=== PATIENT | male | born 1990 | race Caucasian/White ===

== ENCOUNTER → 2018-09-01 11:25 | Outpatient (CLI) | payer OTHER, SELFPAY ==
--- NOTE | 2018-09-01 11:35 | XR_ITS ---
XR finger LT min 2V CLINICAL INDICATION: Pain following injury ITS.REASON: LEFT THUMB INJURY ORDERING PHYSICIAN: Jaron Reagan MD PATIENT AGE: 28 years Comparison: 08/07/2015 FINDINGS: No fracture or dislocation. No radiopaque foreign body IMPRESSION: Negative left thumb
== END ==
PROVIDERS: PCP Family Medicine; Visit Provider Family Medicine
DX: S69.92XA Unspecified injury of left wrist, hand and finger(s), initial encounter (principal)
CPT/HCPCS: 73140

== ENCOUNTER → 2019-12-19 07:19 | Outpatient (CLI) | payer OTHER, SELFPAY ==
[2020-01-09 16:10] LABS: Covid-19 Nasal PCR Sendout Lex NOT DETECTED
== END ==
PROVIDERS: Visit Provider Urology
DX: Z03.818 Encounter for observation for suspected exposure to other biological agents ruled out (principal)
CPT/HCPCS: U0004

== ENCOUNTER 2019-12-21 11:48 | Day surgery (SDC) | payer OTHER, SELFPAY ==
--- NOTE | 2019-12-18 09:39 | SUR.PREOP ---
12/18/2019 @ 0939--PHONE CALL MADE TO PATIENT. PATIENT UNDERSTANDS THAT LAB WORK AND COVID TESTING NEEDS TO BE COMPLETED @ 0730 ON 12/19/2019. PATIENT UNDERSTANDS IF LAB WORK AND COVID-19 TESTS ARE NOT COMPLETED BY 12PM ON THAT DATE, THE SURGERY SCHEDULED WILL BE CANCELLED AND RESCHEDULED FOR ANOTHER TIME.
[2019-12-20 10:28] VITALS: BMI 20.9
[2019-12-21] VITALS (7 sets, daily range): BP systolic 102–118; BP diastolic 60–74; PULSE 74–89; RESP 16–18; TEMP 36.7; O2SAT 94–98
--- NOTE | 2019-12-21 12:51 | HMH.ANESCL ---
[facility] Anesthesia Checklist - Patient Identification Patient Identification: Arm Band - Structural Data Admitted From: Home Planned Operative Procedure/s: vasectomy Consent for Planned Operative Procedure(s) Verified: Yes Verified Documents: Surgical Consent, History and Physical - NPO Status Verified Time NPO: 00:00 - Additional verifications Anesthesia Reactions: No Hx Blood Transfusions: No Blood Transfusion Reaction: No - Airway Assessment C-Spine Mobility Assessed: Yes (mp2) TMJ Mobility Assessed: Yes Dentition: Good Dentition - Neurological Assessment Level of Consciousness: Awake, Alert - Anesthesia Plan Anesthesia Risk discussed: Yes Anesthesia Plan: Verified ASA Class: I Anesthesia Type: MAC [facility] History I have reviewed the patient's past medical history: Yes Medical History: Reports:: Anxiety Denies:: Cancer, Diabetes Mellitus Type 1, Diabetes Mellitus Type 2, Internal Pacemaker, MRSA, Seizures *Have you ever received a pneumonia vaccine?: No *Have you received a flu vaccine this season?: No Other Medical History: Denies: Blood Transfusion Reaction Anesthesia experience/problems:: nac Other Surgeries: Yes: No Previous Surgery. No: Pacemaker Amputation: No Fractures: No - *Social History Smoking Status: Never smoker Tobacco Type: smokeless tobacco Alcohol Intake: never Alcohol Intake Frequency:: holidays/special occasions only Substance Use Type: denies use *Occupational Status:: employed Housing: house Household Members: spouse *Travel in the last 8 weeks: None Family Hx:: Cancer, Hyperlipidemia, Diabetes, Coronary Artery Disease
--- NOTE | 2019-12-21 15:52 | P.OP_ITS ---
Date of procedure: 12/21/19 Pre-op Diagnosis:: Desire sterilization Post-op Diagnosis:: Same Procedure performed:: Bilateral vasectomy Surgeon:: Jamal Smith MD NATURAL RESOURCES INSTRUCTOR:: Raimundo Gonzalez Anesthesia: MAC Estimated blood loss (mL): 2 Clinical Note:: 29-year-old white male seen in the office for vasectomy consultation presents for the procedure today. Operative findings:: Scrotal exam reveals normal-sized testicles without mass. Vasectomy proceeded under local MAC without complication. Operative note:: Patient taken to the operating room after informed consent was obtained. Placed on the operating table in the supine position and monitored anesthesia care administered. Preoperative IV antibiotics were administered. Patient prepped and draped in the standard surgical fashion. Testicular exam revealed normal- sized testicles without masses or other abnormality. The left vas was grasped and brought up to the midline raphae. Local anesthetic was placed in and around the midline raphae and the left vas. The incision was then made in the skin and the left vas was grasped with a tenaculum and the basal sheath then incised and the vasa proper was dissected from its surrounding adventitia. One clip was placed distally and 2 proximally and a 1 cm segment then excised. The ends of the proximal and distal vessels were cauterized with the pen cautery. Hemostasis achieved in the left vas placed back into the left hemiscrotum. The identical procedure was performed on patient's right side bringing the right vas up to the same midline incision and local anesthetic placed around the right vas. Tenaculum was used to bring the vas up through the incision and the basal sheath incised and the vas proper was doubly clipped a segment excised and the ends cauterized. Hemostasis achieved in the right vas dropped back into the right hemiscrotum. A 3-0 chromic was placed in a horizontal mattress fashion. Wet and dry used to clean the scrotal skin and Neosporin and compression dressing applied. Patient tolerated procedure well. There is minimal blood loss and no complications. Condition: stable Disposition: same day Specimens:: None Complications:: None
== END 2019-12-21 16:25 | disposition home or self-care (01) ==
LOC: OR 11:52
PROVIDERS: PCP Physician Assistant; Visit Provider Urology
PROC: (CPT 55250; principal; 2019-12-21 13:30)
DX: Z30.2 Encounter for sterilization (principal)
CPT/HCPCS: 55250; 96374

== ENCOUNTER → 2020-06-11 10:07 | Outpatient (CLI) | payer OTHER, SELFPAY ==
--- NOTE | 2020-06-11 10:18 | XR_ITS ---
PROCEDURE: XR ELBOW RT MIN 3V CLINICAL INDICATION: RT ELBOW PAIN,SWELLING COMPARISON: No exams were available for comparison FINDINGS: No fracture or dislocation. No lytic or blastic change. There is normal mineralization. The joint spaces are well-preserved. No significant degenerative/arthritic changes. No erosive changes evident. Other findings:None. IMPRESSION: No acute findings. Dictated by: Dr. Davide Arias MD 06/11/2020 10:43 Dr. Davide Arias MD in [place] 06/11/2020 10:43
== END ==
PROVIDERS: PCP Physician Assistant; Visit Provider Nurse Practitioner Family
DX: M25.521 Pain in right elbow (principal); M25.421 Effusion, right elbow
CPT/HCPCS: 73080

== ENCOUNTER → 2020-06-14 07:52 | Outpatient (CLI) | payer OTHER, SELFPAY ==
--- NOTE | 2020-06-14 07:54 | MR_ITS ---
PROCEDURE: MR ELBOW RT WO CON CLINICAL INDICATION: RIGHT ELBOW PAIN, SWELLING OF RIGHT ELBOW BURNING IN ELBOW. FELT A POP IN [id number] AGO. LATERAL SIDED ELBOW PAIN. SWELLING IN ELBOW. PRIOR X-RAY 06-11-20 COMPARISON: DX XR ELBOW RT MIN 3V from 06/11/2020 TECHNIQUE: Routine multiplanar multi echo sequences are performed without gadolinium enhancement. FINDINGS: No fracture or bone marrow edema apparent. No ligamentous or tendon abnormalities evident.. The ulnar collateral, radial collateral, and annular ligaments have an unremarkable appearance. There is a small amount of fluid in the elbow joint. The bicipital tendon has an unremarkable appearance as does the triceps area. A small amount of fluid is present just deep to the extensor tendon and may be seen with lateral epicondylitis. The flexor tendon has an unremarkable appearance. IMPRESSION: 1. Small elbow joint effusion. 2. Small amount fluid deep to the extensor tendon which may be seen with lateral epicondylitis. Please correlate clinically. Dictated by: Prosper Ma MD 06/17/2020 12:14 Prosper Ma MD in [place] 06/17/2020 12:14
== END ==
PROVIDERS: PCP Physician Assistant; Visit Provider Nurse Practitioner Family
DX: M25.521 Pain in right elbow (principal); M25.421 Effusion, right elbow
CPT/HCPCS: 73221

== ENCOUNTER 2020-08-13 15:30 | Outpatient (RCR) | payer OTHER, SELFPAY ==
--- NOTE | 2020-07-01 11:03 | HMH.PTOPEV ---
PT Outpatient Evaluation Rehab PT Outpatient Evaluation Start: 07/01/20 10:11 Freq: Status: Active Protocol: Document 07/01/20 10:11 BILL (Rec: 07/01/20 11:03 BILL [id number]) Electronically Signed By Nicolas Alejo, PT 07/01/20 10:11 Outpatient Therapy Subjective History Subjective History Pt reports R elbow work- related injury on 06/17/20. Pt reports lifting injury occured on 06/17/20 while attempting to control asphalt saw, felt ' pop' in lateral aspect of R elbow-pain since. Pt reports referred pain into R lateral upper arm and forearm as well as localized pain at lateral epicondyle. Chief Complaint Pain,Stiff,Weakness Symptom Type Ache,Sharp,Dull Symptoms Relieved By Rest/Positioning,Ice Symptoms Aggravated By Physical Activity,Lifting Prior Functional Limitations None Current Functional Limitations Lifting,Housework,Driving Symptom Description Constant but Variable Level of pain today (0-10) 0 Pain scale - at its best (0-10) 0 Pain scale - at its worst (0-10) 8 Shoulder/Elbow Eval Shoulder Objective Measurements Elbow Objective Measurements Palpation Tenderness Elbow Palpation Overall Comment 3/4 Elbow Palpation Finding Tenderness,Trigger Point tenderness over the lateral epicondyle left elbow exam standard Elbow ROM Right Elbow Extension Active Range of Motion ( 0 degrees) Elbow Flexion Active Range of Motion ( 0-140 degrees) Elbow Pronation of Forearm Range of 0-90 Motion (degrees) Elbow Supination of Forearm Range of 0-90 Motion (degrees) Elbow ROM Limitations Soft Tissue Tightness,Pain Elbow MMT Elbow Flexion Strength Grade 4- Good- Biceps Brachii Strength Grade 4- Good- Brachioradialis Strength Grade 4- Good- Brachialis Strength Grade 4 Good Brachialis Strength Grade (Flexion) 4 Good Elbow Extension Strength Grade 4- Good- Triceps Brachii Strength Grade 4- Good- Elbow Special Tests Passive Tennis Elbow Test Positive Right Wrist/Hand Eval Wrist Manual Muscle Testing Right Wrist Extension Strength Grade 4 Good Wrist Flexion Strength Grade 4- Good- Forearm Supination Strength Grade 4- Good- Forearm Pronation Strength Grade 4- Good- Supinator Strength Grade 4 Good Outpatient Therapy Assessment Impairments Problems/Impairmments Palpation Tenderness,Impaired Range of Motion,Impaired
== END 2020-08-13 15:35 | disposition home or self-care (01) ==
LOC: PT 15:30
PROVIDERS: Referring Provider Nurse Practitioner Family; Visit Provider Nurse Practitioner Family
DX: M25.521 Pain in right elbow; M77.11 Lateral epicondylitis, right elbow; M25.421 Effusion, right elbow
CPT/HCPCS: 97010; 97014; 97033; 97035; 97110; 97163; G0283

== ENCOUNTER 2020-10-04 23:46 | Emergency (ER) | payer OTHER, SELFPAY ==
[2020-10-04 23:52] VITALS: BP 137/97; PULSE 80; RESP 18; TEMP 36.7; O2SAT 98; BMI 20.6
--- NOTE | 2020-10-04 23:57 | XR_ITS ---
PROCEDURE: XR HAND RT MIN 3V CLINICAL INDICATION: punched a wall Pain COMPARISON: No exams were available for comparison FINDINGS: There is a fracture present involving the distal shaft of the 5th metacarpal. There is moderate radial and palmar angulation of the distal fracture fragment with 4 mm displacement anteriorly of the distal fracture fragment. IMPRESSION: Mildly displaced 5th metacarpal fracture Dictated by: Prosper Ma MD 10/05/2020 08:08 Prosper Ma MD in [place] 10/05/2020 08:08
--- NOTE | 2020-10-05 00:03 | XR_ITS ---
PROCEDURE: XR WRIST RT 2V CLINICAL INDICATION: hand pain Pain following injury COMPARISON: No exams were available for comparison FINDINGS: No fracture or dislocation. No lytic or blastic change. There is normal mineralization. The joint spaces are well-preserved. No significant degenerative/arthritic changes. No erosive changes evident. Other findings:None. IMPRESSION: Negative wrist Dictated by: Prosper Ma MD 10/05/2020 08:08 Prosper Ma MD in [place] 10/05/2020 08:08
--- NOTE | 2020-10-05 00:03 | HMH.EDUPEXT ---
ED Disposition Clinical Impression: Fracture of fifth metatarsal bone Qualifiers: Encounter type: initial encounter Fracture type: closed Fracture alignment: displaced Laterality: right Qualified Code(s): S92.351A - Displaced fracture of fifth metatarsal bone, right foot, initial encounter for closed fracture Disposition: Home, Self-Care Condition on Discharge: Good Instructions: DI for Boxer's Fracture Additional Instructions: Use Tylenol and ibuprofen for pain and follow-up with orthopedics for further evaluation of the fracture within 1 week. If you have not heard from orthopedics with an appointment by Wednesday please call their office. Prescriptions: Hydrocod/Acet 5/325 mg [Warren 5/325mg tablet] 1 tab PO Q6HP PRN #6 tab PRN Reason: Severe Pain Transmission Status: Pending to [id number] Referrals: Ayanna Holly PA [Primary Care Provider] - Shankar Schuler MD [Staff Physician] - Forms: Work/School Release Time of Disposition: 00:49 - Critical Care Critical Care Time: No Attestation: On , the high probability of a clinically significant, sudden or life threatening deterioration of the following system(s) required my full and direct attention, intervention and personal management. The time I documented below is in addition to time spent performing reported procedures but includes the following listed in this critical care notation. Medical Decision Making - Baltazar Inquiry Pt receiving controlled substance: Yes Baltazar was queried for this patient: Yes Reference #:: [id number] Risks and benefits of using a controlled substance: were discussed with pt by me Vital Signs: 10/04/20 23:52 Temperature 98.0 F Temperature Source Oral Pulse Rate [Right Brachial] 80 Respiratory Rate 18 Blood Pressure [Right Arm] 137/97 H Blood Pressure Mean [Right Arm] 110 Blood Pressure Source [Right Arm] Automatic Cuff Blood Pressure Position [Right Arm] Sitting 02 Sat by Pulse Oximetry 98 Oxygen Delivery Method Room Air Orders (Tests/Meds): ED MEDICATIONS Discontinued Medications Generic Name Dose Route Start Last Admin Trade Name Freq PRN Reason Stop Dose Admin Acetaminophen 1,000 mg 10/05/20 00:04 10/05/20 00:46 Acetaminophen 500mg Tab PO 10/05/20 00:05 1,000 mg ONCE ONE Administration ORDERS Category Date Time Status Hand XR right 2 views [XR hand RT 2V] Stat Exams 10/05/20 00:34 Ordered Wrist XR right 2 views [XR wrist RT 2V] Stat Exams 10/05/20 00:03 Taken XR hand RT min 3V Stat Exams 10/04/20 23:57 Taken - Radiology Data #1 Image(s): Wrist, Hand Image Reviewed: Yes I reviewed the patient's radiology image Preliminary Findings: Abnormal Right hand demonstrates fifth metacarpal fracture with volar displacement. No acute malalignment or fracture of the wrist. #2 Image(s): Hand Image Reviewed: Yes I reviewed the patient's radiology image Reduction of the fifth metacarpal with improvement in volar and radial displacement and angulation. Medical Decision Narrative: 30-year-old male who presents after punching a wall with right ulnar hand pain. Suspect fracture of the fifth metacarpal. He is having no pain over the wrist and other than decreased range of motion of the fifth phalanx due to pain he is neurovascularly intact. X-rays demonstrate a displaced fifth metacarpal boxer fracture. He was initially given Tylenol for pain at his request. Closed reduction was performed of the fracture and he was placed in an ulnar gutter splint. Following reduction he was intact neurovascularly given follow-up with orthopedics and discharged home in good condition. Upper Extremity HPI - General Chief Complaint: Extremity Injury, Upper Stated Complaint: Injury to Rt hand little finger Time Seen by Provider: 10/04/20 23:50 Mode of Arrival: Family Vehicle Source of Information: Patient Limitations: No Limitations Description of Symptoms (Recalled from ER Triage Doc
--- NOTE | 2020-10-05 00:34 | XR_ITS ---
PROCEDURE: XR HAND RT 2V CLINICAL INDICATION: reduction Fracture evaluation postreduction, pain COMPARISON: CR XR HAND RT MIN 3V from 10/04/2020 FINDINGS: There is a splint present along the ulnar aspect of the hand. Fractures present involving the distal shaft of the 5th metacarpal. There is minimal radial and palmar angulation of the distal fracture fragment. The angulation has improved and there is no significant displacement.. IMPRESSION: Status post closed reduction 5th metacarpal fracture with improvement in angulation and displacement. There remains some mild radial and palmar angulation of the distal fracture fragment. Dictated by: Prosper Ma MD 10/05/2020 08:06 Prosper Ma MD in [place] 10/05/2020 08:06
[2020-10-05 01:03] VITALS: BP 128/88; PULSE 78; RESP 18; TEMP 36.6; O2SAT 99
== END 2020-10-05 01:05 | disposition home or self-care (01) ==
PROVIDERS: Emergency Provider Student in an Organized Health Care Education/Training Program; PCP Physician Assistant
DX: S62.326A Displaced fracture of shaft of fifth metacarpal bone, right hand, initial encounter for closed fracture (principal); W22.01XA Walked into wall, initial encounter; Y92.019 Unspecified place in single-family (private) house as the place of occurrence of the external cause; F41.9 Anxiety disorder, unspecified; Z79.899 Other long term (current) drug therapy
CPT/HCPCS: 26605; 29125; 73100; 73120; 73130; 99284

== ENCOUNTER → 2020-10-11 12:17 | Outpatient (CLI) | payer OTHER, SELFPAY ==
--- NOTE | 2020-10-11 12:23 | XR_ITS ---
PROCEDURE: XR HAND RT MIN 3V CLINICAL INDICATION: RT 5th MC FX Follow-up fracture COMPARISON: CR XR HAND RT MIN 3V from 10/04/2020 CR XR HAND RT 2V from 10/05/2020 FINDINGS: The splint has been removed. Comminuted fractures present at the distal shaft of the 5th metacarpal with mild radial and palmar angulation of the distal fracture fragment. The angulation appears slightly worse compared to the previous exam. No significant displacement The joint spaces are well-preserved. No significant degenerative/arthritic changes. No erosive changes evident. Other findings:None. IMPRESSION: Comminuted fracture distal aspect of the 5th metacarpal as described Dictated by: Prosper Ma MD 10/11/2020 13:39 Prosper Ma MD in [place] 10/11/2020 13:39
== END ==
PROVIDERS: PCP Physician Assistant; Visit Provider Orthopaedic Surgery
DX: S92.353A Displaced fracture of fifth metatarsal bone, unspecified foot, initial encounter for closed fracture (principal)
CPT/HCPCS: 73130

== ENCOUNTER → 2020-10-14 11:01 | Outpatient (CLI) | payer OTHER, SELFPAY ==
[2020-10-14 12:55] LABS: Coronavirus 19 IgG Antibody Positive (Negative); Coronavirus 19 IgM Antibody Negative (Negative)
== END ==
PROVIDERS: Visit Provider Orthopaedic Surgery
DX: S92.353A Displaced fracture of fifth metatarsal bone, unspecified foot, initial encounter for closed fracture (principal); Z01.818 Encounter for other preprocedural examination
CPT/HCPCS: 36415; 86328

== ENCOUNTER 2020-10-15 09:25 | Day surgery (SDC) | payer OTHER, SELFPAY ==
[2020-10-14 13:30] VITALS: BP 126/70; PULSE 73; RESP 18; O2SAT 99
--- NOTE | 2020-10-15 | XR_ITS ---
PROCEDURE: XR HAND RT MIN 3V CLINICAL INDICATION: ORIF fracture, pain COMPARISON: No exams were available for comparison FINDINGS: Multiple images submitted with the C-arm demonstrates placement of a dorsal bone plate stabilizing distal 5th metacarpal fracture which is in good alignment. Fluoroscopy time: 0.52 minutes IMPRESSION: Status post ORIF 5th metacarpal fracture with C-arm with good alignment Dictated by: Prosper Ma MD 10/15/2020 18:09 Prosper Ma MD in [place] 10/15/2020 18:09
[2020-10-15 09:46] VITALS: BP 118/78; PULSE 67; RESP 18; TEMP 36.1; O2SAT 99; BMI 20.6
--- NOTE | 2020-10-15 10:20 | HMH.ANESCL ---
[facility] Anesthesia Checklist - Patient Identification Patient Identification: Arm Band - Structural Data Admitted From: Home Planned Operative Procedure/s: ORIF Right 5th Metacarpal Consent for Planned Operative Procedure(s) Verified: Yes Verified Documents: Surgical Consent, History and Physical - NPO Status Verified Time NPO: 00:00 - Additional verifications Anesthesia Reactions: No Hx Blood Transfusions: No Blood Transfusion Reaction: No - Airway Assessment C-Spine Mobility Assessed: Yes (mp2) TMJ Mobility Assessed: Yes Dentition: Good Dentition - Neurological Assessment Level of Consciousness: Awake, Alert - Anesthesia Plan Anesthesia Risk discussed: Yes Anesthesia Plan: Verified ASA Class: I Anesthesia Type: General w/block (Supraclavicular-Risks/benefits explained. Pt verbalizes understanding) [facility] History I have reviewed the patient's past medical history: Yes Medical History: Reports:: Anxiety Denies:: Cancer, Diabetes Mellitus Type 1, Diabetes Mellitus Type 2, Internal Pacemaker, MRSA, Seizures *Have you ever received a pneumonia vaccine?: No *Have you received a flu vaccine this season?: No Other Medical History: Denies: Blood Transfusion Reaction Anesthesia experience/problems:: nac Other Surgeries: Yes: Other. No: Pacemaker Amputation: No Fractures: No - *Social History Last grade of school completed: High school graduate Smoking Status: Never smoker Tobacco Type: smokeless tobacco Alcohol Intake: never Alcohol Intake Frequency:: holidays/special occasions only Substance Use Type: denies use *Occupational Status:: employed Housing: house Household Members: spouse *Travel in the last 8 weeks: None - Psychiatric History Pschychiatric History:: Reports:: Anxiety Family Hx:: Cancer, Diabetes
[2020-10-15 12:27] VITALS: TEMP 38
[2020-10-15 13:17] VITALS: BP 106/64; PULSE 87; RESP 18; TEMP 36.4; O2SAT 98
[2020-10-15 13:45] VITALS: BP 117/72; PULSE 72; RESP 18; O2SAT 98
--- NOTE | 2020-10-15 16:16 | HMH.OPNOTE ---
Date of procedure: 10/15/20 Pre-op Diagnosis:: R 5th (small) metacarpal neck fracture Post-op Diagnosis:: R 5th (small) metacarpal neck fracture Procedure performed:: open reduction internal fixation (ORIF) R 5th (small) metacarpal neck fracture Surgeon:: Nathalie Parikh MD In House Cra(s):: MEREDITH Ashley RN PATIENT CARE:: Nico May Anesthesia: MAC, regional Estimated blood loss (mL): 10 Clinical Note:: 30-year-old [id number] male who sustained an injury to the R hand on 10/04/20 after he punched a wall. He had immediate pain and noticed a deformity, which he tried to realign himself. Close reduction of a 5th metacarpal neck fracture was performed in the emergency department and a ulnar gutter splint applied. However, just prior to presentation at his first office visit with me on 10/11/20 he removed the splint to take a shower. No open wounds reported over the right hand, no numbness or tingling in the digits. He denies any baseline medical comorbidities and has no known drug allergies. His only home medications fluoxetine 20 mg daily. He does not smoke. A comminuted fracture was seen of the 5th metacarpal neck, with approximately 50 degrees volar angulation of the distal fracture fragment and a clinical rotational deformity. Given the shortening, rotation and angulation of this fracture, I recommend surgical intervention. I recommended closed reduction and percutaneous pinning, with open reduction internal fixation if this does not produce acceptable alignment. I discussed both procedures with the patient and their concomitant risks and benefits. Specifically, I discussed the risk of: Bleeding, infection, nonunion, malunion, CRPS, persistent pain and stiffness despite surgery, loss of strength in his hand, loss of reduction after surgery, and the need to continue mobilization after surgery. The patient vocalized understanding and provided informed consent for the procedure. Operative findings:: comminuted, shortened and rotated fracture of 5th metacarpal neck with soft tissue interposed in fracture site Operative note:: The patient was identified in preoperative holding and the R hand signed by myself. Consent was reviewed with the patient and all questions answered. After discussion with anesthesia and the patient, the decision was made to do the procedure with MAC and a supraclavicular nerve block. The block was performed by the RN PATIENT CARE in pre-operative holding. The patient was then taken to the OR and placed supine on the operative table with a hand table attached. 1g Ancef was infused and sedation administered. Splint was removed from the R hand, non-sterile tourniquet was placed on the upper arm and the R hand was prepped and draped in the usual sterile fashion. Timeout was performed, identifying the correct patient, correct procedure, and correct site. The procedure was begun by using C-arm to localize the fracture site in R 5th (small) finger metacarpal neck. Closed reduction was attempted but appropriate alignment not obtained; I feared soft tissue was entrapped at the fracture site. I made the decision to open the hand and perform ORIF. The desired surgical incision was drawn over the dorsum of the R hand, centered between the 4th and 5th metacarpal shafts but not directly over either bone. The incision was longitudinal and approximately 4cm long. The R arm was exsanguinated with an Esmarch and the tourniquet inflated to 250 mmHg. Incision was made with a 15 blade, incising skin only. Blunt dissection was performed carefully with tenotomy scissors, taking care to retract the extensor tendons radially along with superficial neurovascular structures. The fracture site was identified at the 5th metacarpal neck, with moderate shortening and rotation of the distal fracture fragment. Additionally, there was soft tissue interposed between the fracture fragments, which was cleared and reduction easy after that. A fresh 15 blade was used to reflec
== END 2020-10-15 13:45 | disposition home or self-care (01) ==
LOC: OR 09:25
PROVIDERS: PCP Physician Assistant; Visit Provider Orthopaedic Surgery
PROC: (CPT 26615; principal; 2020-10-15 11:00)
DX: S62.336A Displaced fracture of neck of fifth metacarpal bone, right hand, initial encounter for closed fracture (principal); W22.8XXA Striking against or struck by other objects, initial encounter; Z72.0 Tobacco use
CPT/HCPCS: 26615; 73130; 76000; 96374; C1713; C1776

== ENCOUNTER → 2020-10-21 14:26 | Outpatient (CLI) | payer OTHER, SELFPAY ==
--- NOTE | 2020-10-21 14:28 | XR_ITS ---
PROCEDURE: XR HAND RT MIN 3V CLINICAL INDICATION: s/p rt 5th MC FX Follow-up fracture COMPARISON: CR XR HAND RT MIN 3V from 10/04/2020 CR XR HAND RT 2V from 10/05/2020 DX XR HAND RT MIN 3V from 10/11/2020 FINDINGS: Post dorsal bone plate at the mid and distal the 5th metacarpal with good alignment of the fracture fragments. IMPRESSION: Good alignment status post 5th metacarpal fracture. Dictated by: Prosper Ma MD 10/21/2020 16:11 Prosper Ma MD in [place] 10/21/2020 16:11
== END ==
PROVIDERS: PCP Physician Assistant; Visit Provider Orthopaedic Surgery
DX: S62.366D Nondisplaced fracture of neck of fifth metacarpal bone, right hand, subsequent encounter for fracture with routine healing (principal)
CPT/HCPCS: 73130

== ENCOUNTER 2020-10-21 15:10 | Outpatient (RCR) | payer OTHER, SELFPAY | END 2020-10-21 16:00 | disposition home or self-care (01) | LOC: OT 15:10 | PROVIDERS: Visit Provider Orthopaedic Surgery | DX: S62.336A Displaced fracture of neck of fifth metacarpal bone, right hand, initial encounter for closed fracture (principal) | CPT/HCPCS: 97760 ==

== ENCOUNTER → 2020-11-11 12:54 | Outpatient (CLI) | payer OTHER, SELFPAY ==
--- NOTE | 2020-11-11 12:57 | XR_ITS ---
PROCEDURE: XR HAND RT MIN 3V CLINICAL INDICATION: s/p ORIF R 5th metacarpal fracture Follow-up fracture COMPARISON: CR XR HAND RT MIN 3V from 10/04/2020 CR XR HAND RT 2V from 10/05/2020 DX XR HAND RT MIN 3V from 10/11/2020 CR XR HAND RT MIN 3V from 10/21/2020 FINDINGS: Status post ORIF 5th metacarpal fracture. Bone plate remains in place with good alignment of the fracture fragments. Fracture line is less visible compared to the previous exam. The joint spaces are well-preserved. No significant degenerative/arthritic changes. No erosive changes evident. Other findings:None. IMPRESSION: Good alignment healing 5th metacarpal fracture status post ORIF Dictated by: Prosper Ma MD 11/11/2020 14:10 Prosper Ma MD in [place] 11/11/2020 14:10
== END ==
PROVIDERS: PCP Physician Assistant; Visit Provider Orthopaedic Surgery
DX: S62.366D Nondisplaced fracture of neck of fifth metacarpal bone, right hand, subsequent encounter for fracture with routine healing (principal)
CPT/HCPCS: 73130

== ENCOUNTER → 2020-12-13 10:44 | Outpatient (CLI) | payer OTHER, SELFPAY ==
--- NOTE | 2020-12-13 10:49 | XR_ITS ---
PROCEDURE: XR HAND RT MIN 3V CLINICAL INDICATION: s/p ORIF R 5th metacarpal fracture Follow-up surgery COMPARISON: CR XR HAND RT 2V from 10/05/2020 DX XR HAND RT MIN 3V from 10/11/2020 CR XR HAND RT MIN 3V from 10/21/2020 CR XR HAND RT MIN 3V from 11/11/2020 FINDINGS: Dorsal bone plate once again noted at the mid distal aspect of the 5th metacarpal with good alignment the fracture fragments. The joint spaces are well-preserved. No significant degenerative/arthritic changes. No erosive changes evident. Other findings:None. IMPRESSION: No change good alignment status post ORIF 5th metacarpal Dictated by: Prosper Ma MD 02/05/2021 13:26 Prosper Ma MD in [place] 02/05/2021 13:26
== END ==
PROVIDERS: PCP Physician Assistant; Visit Provider Orthopaedic Surgery
DX: S92.353A Displaced fracture of fifth metatarsal bone, unspecified foot, initial encounter for closed fracture (principal)
CPT/HCPCS: 73130

== ENCOUNTER 2020-12-30 15:59 | Emergency (ER) | payer OTHER, SELFPAY ==
[2020-12-30 16:00] VITALS: BP 137/77; PULSE 77; RESP 19; TEMP 37; O2SAT 99; BMI 20.6
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
[2020-12-30 16:28] VITALS: BP 137/77; PULSE 77; RESP 19; TEMP 37; O2SAT 99
== END 2020-12-30 16:29 | disposition home or self-care (01) ==
PROVIDERS: Emergency Provider Nurse Practitioner; PCP Physician Assistant
DX: Z20.822 Contact with and (suspected) exposure to COVID-19 (principal); F41.9 Anxiety disorder, unspecified
CPT/HCPCS: 99202; G0463; U0003

== ENCOUNTER → 2021-01-17 13:40 | Outpatient (CLI) | payer OTHER, SELFPAY ==
--- NOTE | 2021-01-17 13:43 | XR_ITS ---
PROCEDURE: XR HAND RT MIN 3V CLINICAL INDICATION: s/p ORIF RT 5th MC FX Follow-up fracture COMPARISON: DX XR HAND RT MIN 3V from 10/11/2020 CR XR HAND RT MIN 3V from 10/21/2020 CR XR HAND RT MIN 3V from 11/11/2020 CR XR HAND RT MIN 3V from 12/13/2020 FINDINGS: Dorsal bone plate is present at the mid distal shaft of the 5th metacarpal with good alignment of the digit Callus formation developing at the fracture site. Other findings:None. IMPRESSION: Healing 5th metacarpal fracture with good alignment Dictated by: Prosper Ma MD 01/17/2021 15:19 Prosper Ma MD in [place] 01/17/2021 15:19
== END ==
PROVIDERS: PCP Physician Assistant; Visit Provider Orthopaedic Surgery
DX: S62.339A Displaced fracture of neck of unspecified metacarpal bone, initial encounter for closed fracture (principal)
CPT/HCPCS: 73130

== ENCOUNTER 2021-01-20 11:00 | Outpatient (RCR) | payer OTHER, SELFPAY ==
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
--- NOTE | 2020-12-13 15:58 | HMH.RHREAS ---
Rehab Reassessment Rehab OP Re-assessment Start: 12/13/20 15:24 Freq: Status: Active Protocol: Document 12/13/20 15:24 LUIS (Rec: 12/13/20 15:58 LUIS [id number]) Electronically Signed By Claire Love OT 12/13/20 15:24 Rehab Re-assessment Subjective Subjective I see some improvements. Objective Objective Notes Pt continues to be seen weekly in order to address right small finger deficits. Each session pt engages in right small finger AROM and strengthening exercises. Pt is also passively ranged each session at small ringer at MP, PIP, and DIP joints in flexion/extension. Modalities are provided in order to decrease pain/inflammation Assessment Progress Assessment Progressing as Expected Assessment Notes Pt demonstrates improvement with overall motion in right small finger. However, pt's MP joint in small finger is still significantly limited. Pt reports his pain has improved and usually doesn't have much pain unless there is a temperature change. He back to work fulltime and able to complete all activities required. MP Flex: 30 degrees PIP Flex: 100 degrees DIP Flex: [address] degrees [address] goals [address]-5 LT-5 Goals Not Met See below Revised Goals ST LTG 1-2 Plan Plan Continue with OT plan of care. Frequency of Therapy 2x's a week Duration of therapy 4 more weeks Time and Billing Re-Eval Time 10 Re-Eval Billing Units 1 PHYSICIAN CERTIFICATION: I certify the specified therapy services for Jairon Araujo are required, authorized, and reviewed every 30 days.
== END 2021-01-20 11:05 | disposition home or self-care (01) ==
LOC: OT 11:00
PROVIDERS: PCP Physician Assistant; Visit Provider Orthopaedic Surgery
DX: S62.366D Nondisplaced fracture of neck of fifth metacarpal bone, right hand, subsequent encounter for fracture with routine healing (principal)
CPT/HCPCS: 97014; 97035; 97110; 97140; 97164; 97166; G0283

== ENCOUNTER → 2021-05-15 10:51 | Outpatient (CLI) | payer OTHER, SELFPAY ==
--- NOTE | 2021-05-15 10:59 | XR_ITS ---
PROCEDURE: XR CHEST PORTABLE CLINICAL HISTORY: COVID OUTPATIENT COMPARISON: No exams were available for comparison FINDINGS: The cardiomediastinal silhouette and pulmonary vascularity are within normal limits. The lungs are clear without infiltrates, suspicious nodules, or pleural effusions. No acute bony abnormalities. IMPRESSION: No acute findings. Dictated by: Dr. Davide Arias MD 05/15/2021 11:29 Dr. Davide Arias MD in [place] 05/15/2021 11:29
[2021-05-15 11:37] LABS: Basophils # 0.1 K/mm3 (0-0.2); Eosinophils # 0.3 K/mm3 (0.0-0.4); Eosinophils % 2.8 % (0.1-12.0); Hematocrit 47.3 % (42.0-52.0); Hemoglobin 15.4 g/dL (14.1-18.0); Lymphocytes # 1.6 K/mm3 (0.7-4.5); Lymphocytes % 17.5 % (10-50); Mean Corpuscular HGB Conc 32.6 g/dL (31.8-35.4); Mean Corpuscular Volume 92.2 fl (80-94); Mean Platelet Volume 8.2 fl (7.4-10.4); Monocytes # 0.6 K/mm3 (0.1-1.0); Monocytes % 6.5 % (1.7-9.3); Neutrophils # 6.5 K/mm3 (1.8-7.8); Neutrophils % 72.2 % (37.0-80.0); Platelet Count 329 K/mm3 (142-424); Red Blood Count 5.13 M/mm3 (4.60-6.20); Red Cell Distribution Width 13.9 % (11.5-17.5); White Blood Count 9.1 K/mm3 (4.8-10.8)
[2021-05-21 13:10] LABS: Testosterone, Total, LC/MS 790.8 ng/dL (264.0-916.0)
== END ==
PROVIDERS: PCP Physician Assistant; Visit Provider Physician Assistant
DX: Z20.822 Contact with and (suspected) exposure to COVID-19 (principal)
CPT/HCPCS: 36415; 71045; 84403; 85025; C9803; U0003; U0005

== ENCOUNTER → 2022-04-02 10:58 | Outpatient (CLI) | payer OTHER, SELFPAY ==
[2022-04-02 11:47] LABS: Basophils # 0.1 K/mm3 (0-0.2); Basophils % 1.2 % (0.1-2.0); Eosinophils # 0.1 K/mm3 (0.0-0.4); Hematocrit 44.3 % (42.0-52.0); Hemoglobin 13.9 g/dL (14.1-18.0); Lymphocytes # 1.4 K/mm3 (0.7-4.5); Lymphocytes % 36.4 % (10-50); Mean Corpuscular HGB Conc 31.4 g/dL (31.8-35.4); Mean Corpuscular Hemoglobin 29.1 pg (27.0-31.2); Mean Corpuscular Volume 92.6 fl (80-94); Mean Platelet Volume 7.4 fl (7.4-10.4); Monocytes # 0.3 K/mm3 (0.1-1.0); Monocytes % 7.3 % (1.7-9.3); Neutrophils % 52.1 % (37.0-80.0); Platelet Count 266 K/mm3 (142-424); Red Blood Count 4.79 M/mm3 (4.60-6.20); Red Cell Distribution Width 13.2 % (11.5-17.5); White Blood Count 3.9 K/mm3 (4.8-10.8)
[2022-04-02 11:51] LABS: Strep Scrn Group A (Rapid) Negative (Negative)
== END ==
PROVIDERS: PCP Physician Assistant; Visit Provider Physician Assistant
DX: Z20.822 Contact with and (suspected) exposure to COVID-19 (principal)
CPT/HCPCS: 36415; 85025; 87430

== ENCOUNTER 2024-08-04 11:08 | Outpatient (CLI) | payer BC, OTHER, SELFPAY ==
--- NOTE | 2024-08-04 11:23 | XR_ITS ---
FINAL REPORT CLINICAL HISTORY: FOOD STICKS ON SWALLOWING FINDINGS: CHEST 2 VIEWS PA AND LATERAL The heart is normal in size. The mediastinum is unremarkable. The lungs are clear. There is no pneumothorax. IMPRESSION: No acute process. Reviewed, Interpreted and Dictated by Raheem Cervantes MD Transcribed by Jessica Fuentes Authenticated and [facility]
== END 2024-08-04 23:59 | disposition home or self-care (01) ==
PROVIDERS: PCP Nurse Practitioner Family; Visit Provider Physician Assistant
DX: R13.10 Dysphagia, unspecified (principal)
CPT/HCPCS: 71046

== ENCOUNTER 2024-09-20 09:03 | Day surgery (SDC) | payer BC, OTHER, SELFPAY ==
[2024-09-19 11:01] VITALS: BMI 22.4
[2024-09-20 09:23] VITALS: BP 136/78; PULSE 78; RESP 18; TEMP 36.6; O2SAT 96
[2024-09-20] MEDS: LACTATED RINGERS 1000ML 1,000 ML 50 ML IV (09:23)
--- NOTE | 2024-09-20 09:32 | P.PNANES_ITS ---
[facility] Disclaimer: The information contained in this section may have been updated after the patient was seen, as this information can be updated by other users. Medical History (Updated 09/20/24 @ 09:20 by Amador Brasher RN) No significant past medical history Surgical History (Updated 09/20/24 @ 09:20 by Amador Brasher RN) History of hand surgery Family History Other Cancer Cardiac abnormality Diabetes Social History Smoking Status: Never smoker alcohol intake: never substance use type: denies use current occupational status: employed Travel in the last 8 weeks: None household members: spouse housing: house number of children: 4 current occupation: [employer] current occupational exposures/hazards: Yes caffeine: Yes Have you lived/traveled outside US in past 30 days?: No Contact w/someone who lives/traveled outside US past 30 days?: No Exposure to someone with infectious disease in past 14 days?: No Do you have a fever (greater than 100.4 F or 38 C)?: No Have you tested positive for COVID-19: No Exposed to someone with COVID-19 in past 14 days?: No Do you have a sore throat?: No Do you have a cough?: No Do you have any weakness?: No Are you experiencing any nausea/vomitting?: No Do you have any diarrhea?: No Are you experiencing any unusual bleeding?: No Do you have any muscle aches/pain?: No Do you have any abdominal pain?: No Are you experiencing loss of taste or smell?: No [facility] Anesthesia Checklist Patient Identification Patient Identification: Arm Band and Verbal (Name & ) Structural Data Admitted From: Home Planned Operative Procedure/s: EGD Consent for Planned Operative Procedure(s) Verified: Yes Verified Documents: Surgical Consent NPO Status Verified Time NPO: 00:00 Additional verifications Patient : No Anesthesia Reactions: No Hx Blood Transfusions: No Blood Transfusion Reaction: No Cephalosporin Allergy: No Previous Colonoscopy: No Cardiovascular Assessment Heart Sounds: S1 & S2 Pulse Strength: Baseline Pulse Rhythm: Regular Peripheral Edema: No Airway Assessment Mallampati Score:: Class I C-Spine Mobility Assessed: Yes TMJ Mobility Assessed: Yes Dentition: Good Dentition Neurological Assessment Level of Consciousness: Awake, Alert and Appropriate Hx Seizures: No Numbness or tingling in extremities: No Anesthesia Plan Anesthesia Risk discussed: No ASA Class: II Anesthesia Type: MAC
--- NOTE | 2024-09-20 09:56 | EXP.HP ---
History of Present Illness *Admission Date: 09/20/24 *Reason for visit:: Vomiting *History of present illness: Mr. Araujo is a 34-year-old gentleman who is here for diagnostic upper endoscopy secondary to vomiting, heartburn and reflux. The examination is deemed medically necessary for diagnostic EGD. The patient has been seen, interviewed and examined prior to the procedure by both myself and the anesthesia provider. [facility] Disclaimer: The information contained in this section may have been updated after the patient was seen, as this information can be updated by other users. Medical History (Updated 09/20/24 @ 09:57 by Juan Miguel Ybarra II, MD) No significant past medical history Surgical History (Updated 09/20/24 @ 09:20 by Amador Brasher RN) History of hand surgery Family History Other Cancer Cardiac abnormality Diabetes Social History Smoking Status: Never smoker alcohol intake: never substance use type: denies use current occupational status: employed Travel in the last 8 weeks: None household members: spouse housing: house number of children: 4 current occupation: [employer] current occupational exposures/hazards: Yes caffeine: Yes Have you lived/traveled outside US in past 30 days?: No Contact w/someone who lives/traveled outside US past 30 days?: No Exposure to someone with infectious disease in past 14 days?: No Do you have a fever (greater than 100.4 F or 38 C)?: No Have you tested positive for COVID-19: No Exposed to someone with COVID-19 in past 14 days?: No Do you have a sore throat?: No Do you have a cough?: No Do you have any weakness?: No Are you experiencing any nausea/vomitting?: No Do you have any diarrhea?: No Are you experiencing any unusual bleeding?: No Do you have any muscle aches/pain?: No Do you have any abdominal pain?: No Are you experiencing loss of taste or smell?: No Other Medical History Have you received the Flu Vaccine for this season: No Have you received the Pneumonia Vaccine: Yes Review of Systems Review of Systems Review of systems (narrative): Negative *Cardiovascular Comments: Negative *Gastrointestinal Comments: Negative *Genitourinary Comments: Negative *Musculoskeletal Comments: Negative *Neurologic Comments: Negative Meds Home Medications and Allergies Home Medications ?Medication ?Instructions ?Recorded ?Confirmed ?Type cetirizine 10 mg tablet 10 mg PO DAILY 09/20/24 09/20/24 History New Prescriptions to Start Prescriptions: Allergies Allergy/AdvReac Type Severity Reaction Status Date / Time No Known Allergies Allergy Verified 09/20/24 09:18 Exam Data for Last 24 hours Vital signs and Labs for Last 24 Hours: Temp Pulse Resp BP Pulse Ox O2 Del Method 97.9 F 78 18 136/78 96 Room Air 09/20/24 09:23 09/20/24 09:23 09/20/24 09:23 09/20/24 09:23 09/20/24 09:23 09/20/24 09:23 I & O for Last 24 hours: Intake & Output 09/17/24 09/18/24 09/19/24 09/20/24 23:59 23:59 23:59 23:59 Weight 165 lb *Routine HEENT Exam Head: Present normocephalic Eye: Present EOMI and PERRL ENT: Present mucous membranes moist *Routine Neck Exam Neck: Present supple *Routine Respiratory Exam Respiratory: Present CTA bilaterally *Routine Cardiovascular Exam Cardiovascular: Present RRR *Routine Abdominal Exam Abdominal: Present soft and normoactive bowel sounds; Absent tenderness *Routine Rectal Exam Rectal:: deferred *Routine Genitalia Exam Genitalia:: deferred *Routine Extremities Exam Extremities: Absent cyanosis, clubbing or edema *Routine Skin Exam Skin: Present warm; Absent rash *Routine Neurological Exam Neurological: Present alert and oriented X3 Assessment and Plan *Assessment and plan (1) Vomiting: Status: Acute Category: Medical Code(s): R11.10 - Vomiting, unspecified (2) Heartburn: Status: Acute Category: Medical Code(s): R12 - Heartburn (3) GERD (gastroesophageal reflux disease): Status: Acute Category: Medical Code(s): K21.9 - Gastro-esophageal reflux disease without esophagitis Plan A/P: 1. Vomiting, heartburn and reflux is the preprocedural diagnosis. The patient will be anesthetized/sedated using MAC sedation. The patient has been seen and examined. Cardiac and lung assessment prior to the examination is stable. Proceed with planned diagnostic EGD.
[2024-09-20 09:59] VITALS: O2SAT 100
--- NOTE | 2024-09-20 10:06 | HMH.PROCNOTE ---
[facility] Procedure Note Date: 09/20/24 Time: 10:15 Procedure Note:: Upper Endoscopy Procedure Report: Esophagogastroduodenoscopy with cold biopsies Endoscopost: Juan Mgiuel Ybarra II, MD Referring Physician: Neyda HOOK Date of Procedure: September 20, 2024 Equipment: Olympus GIF 190 standard upper endoscope Sedation: MAC sedation Indications: Mr. Araujo is a 34-year-old gentleman who has struggled with vomiting in the mornings anywhere between 5 and 8 AM. He has done this since middle school and has been going on for more than 20 years. He does get some heartburn and reflux especially when he is lifting something heavy. His emesis is primarily bile but formerly would be some undigested food content. He reports no bloating, gassiness or belching. With forceful vomiting, he has occasionally seen small amounts of blood with his emesis. He reports no nausea. He reports no marijuana use or migraine headaches. He does report a daily bowel movement but does have incomplete bowel evacuation. He reports no dysphagia or weight loss. 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 This is his first upper endoscopy. Procedure: Prior to the procedure, a history and physical exam was performed, and patient's medications and allergies were reviewed. The risks, benefits and alternatives of the sedation and procedure were discussed with the patient. All questions were answered and informed consent was obtained. The patient was brought to the procedure room. Patient identification and proposed procedure were verified by the physician and the nurse. The patient was placed in a left lateral decubitus position and the scope was passed under direct vision. Throughout the procedure, the patient's blood pressure, pulse, and oxygen saturations were monitored continuously. The upper GI endoscopy was accomplished without difficulty. The patient tolerated the procedure well. Findings: The scope was passed directly into the upper esophagus and advanced to the third portion of the duodenum. The post bulbar duodenum and duodenal bulb were normal with normal mucosa and conniventes. The scope was withdrawn through a normal duodenal bulb and pylorus into the stomach. There was very minimal reactive gastropathy of the antrum. The remainder of the body and fundus of the stomach were normal. Upon retroflexion there was a very small sliding 1 to 2 cm hiatal hernia. Cold biopsies were taken from the antrum. The scope was then withdrawn into the esophagus. There was evidence of grade C (LA classification) reflux esophagitis. There was no peptic stricture. There was no corrugation. The remainder of the esophageal mucosa was normal. Cold biopsies were taken from the distal esophagus/GE junction. Impression: 1. Grade C (LA classification) reflux esophagitis with very small sliding 1 to 2 cm hiatal hernia 2. Minimal reactive gastropathy of prepyloric antrum Plan: I am going to place the patient on [place] if it is covered. I do feel that most of his vomiting and reflux are related to his obstipation/incomplete bowel evacuation. I would initiate a fiber bowel regimen as well. I will follow-up the biopsies.
[2024-09-20 10:18] VITALS: BP 107/65; PULSE 74; RESP 15; TEMP 36.2; O2SAT 95
[2024-09-20 10:28] VITALS: BP 110/68; PULSE 70; RESP 16; O2SAT 94
[2024-09-20 10:38] VITALS: BP 104/66; PULSE 71; RESP 17; O2SAT 96
[2024-09-20 10:48] VITALS: BP 112/75; PULSE 72; RESP 17; O2SAT 95
== END 2024-09-20 10:55 | disposition home or self-care (01) ==
PROVIDERS: PCP Nurse Practitioner Family; Visit Provider Internal Medicine Gastroenterology
PROC: 0DJ08ZZ Inspection of Upper Intestinal Tract, Via Natural or Artificial Opening Endoscopic (ICD-10-PCS; CPT 43239; principal; 2024-09-20 11:00)
DX: R11.10 Vomiting, unspecified (principal); R12 Heartburn; K21.00 Gastro-esophageal reflux disease with esophagitis, without bleeding; K31.9 Disease of stomach and duodenum, unspecified; K44.9 Diaphragmatic hernia without obstruction or gangrene
CPT/HCPCS: 43239; J7120

== ENCOUNTER 2025-02-03 12:59 | Outpatient (CLI) | payer BC, OTHER, SELFPAY ==
--- NOTE | 2025-02-03 13:01 | XR_ITS ---
PROCEDURE INFORMATION: Exam: XR Left Hand Exam date and time: 02/03/2025 12:55 PM Age: 34 years old Clinical indication: Injury or trauma; Other: Bent finger back; Other: Bend TECHNIQUE: Imaging protocol: Radiologic exam of the left hand. Views: 1 or 2 views. COMPARISON: CR FINGERLT XR finger LT min 2V 09/01/2018 11:54 AM FINDINGS: Bones/joints: Lucency through the head of the 5th metacarpal consistent with minimally displaced fracture. There is also a lucency in the neck of the 5th metacarpal. Soft tissues: Soft tissue swelling along the ulnar aspect of the hand IMPRESSION: Lucency through the head of the 5th metacarpal consistent with minimally displaced fracture. There is also a lucency in the neck of the 5th metacarpal.
== END 2025-02-03 23:59 | disposition home or self-care (01) ==
LOC: RAD 13:00
PROVIDERS: PCP Nurse Practitioner Family; Visit Provider Nurse Practitioner Family
DX: R93.6 Abnormal findings on diagnostic imaging of limbs (principal); M79.672 Pain in left foot
CPT/HCPCS: 73120

== ENCOUNTER 2025-02-12 08:52 | Outpatient (CLI) | payer SELFPAY ==
--- NOTE | 2025-02-12 08:57 | XR_ITS ---
FINAL REPORT CLINICAL HISTORY: Fracture follow-up, pain COMPARISON: None FINDINGS: LEFT HAND Three views of the left hand were obtained. There is a persistent fracture deformity of the distal fifth metacarpal with mild volar angulation of the distal fracture fragments and mild intra-articular extension of the fracture. There are mild hypertrophic changes at the basilar joint. The soft tissues are unremarkable. IMPRESSION: Stable healing fracture deformity of the distal fifth metacarpal. Reviewed, Interpreted and Dictated by Raheem Cervantes MD Transcribed by Aisha Ley Authenticated and [facility]
--- OUTSIDE RECORDS SUMMARY | 2025-02-12 08:57 | XMS_ITS | Data Portability ---
Author Organization [facility] - KEN Can [facility] Address [address] [place] [address] Assessment No assessment recorded. Plan of Treatment Reminders Order Date Submit Date Provider Last Modified By Organization Details Last Modified Time Details Appointments None record ed. Lab None record ed. Referral None record ed. Procedures None record ed. Surgeries None record ed. Imaging None record ed. Medication Orders None record ed. Patient TargetsNo targets recorded. Patient Instructions Encounter Date Encounter Id Patient Instructions Last Modified By Organization Details Last Modified Time 02/21/2021 [id number] Continue therapy . His work requires a lot of lifting, he feels he needs one additional week off before he can return. He is given a work note to that effect. He is encouraged to continue therapy diligently. [email or web address] Not available 02/21/2021 13:42:49 Reason for Referral None Reported. Results Created Date Observation Date Name Description Value Unit Range Abnormal Flag Note LastModifiedBy Organization Detail LastModifiedTime 02/22/20 21 02/21/2021 XR, hand, 2 view [place] [facility] [address] [address] Patililo t Name: JAIRON ARELLANO Patien t : 1989 Patien t 51 Orderi ng Provid er: FRIDA BOYD EXAM DATE: 2020 EXAM: XR RT HAND 2 VIEWS HISTOR Y: Follow -up of prior surger y. COMPAR YOBANI: None. FINDIN GS: There is prior remova l of hardwa re from the fifth metaca rpal. There is a healed fractu re of the fifth metaca rpal. No acute fractu re is identi fied. IMPRES JENS: 1. There is prior remova l of hardwa re from the right fifth metaca rpal. Interp reted By: Kenrick long MD Electr onical ly Signed By: Kenrick long MD on 021 11:38 AM [email or web address] [facility] [address] , [place], [address], 02/12/2022 03:45:39 Result Notes Documentation Provider Name and Address Organization Details Recorded Time Xr, Hand, 2 View : [facility] [address] [place] [address] Patient Name: JAIRON MALHOTRA Patient : 1990 Patient Ordering Provider: KENNETH CARBALLO EXAM DATE: 02/21/2021 EXAM: XR RT HAND 2 VIEWS HISTORY: Follow-up of prior surgery. COMPARISON: None. FINDINGS: There is prior removal of hardware from the fifth metacarpal. There is a healed fracture of the fifth metacarpal. No acute fracture is identified. IMPRESSION: 1. There is prior removal of hardware from the right fifth metacarpal. Interpreted By: Kedar Luis MD ETH CARBALLO PA-C [address] [place] [address], [id number], [facility] 02/21/2021 12:39:26 Procedures Surgical History Date Name Laterality Status Provider Name and Address Organization Details Recorded Time Orthopedic Surgery completed [facility] 01/28/2021 13:57:20 Imaging Results None recorded. Procedure Notes None recorded. Medical Equipment None Reported. Allergies No known drug allergies Medications Name Sig Start Date Stop Date Status Note LastModified by Organization Details LastModified Time fluoxetine 40 mg capsule TAKE 1 CAPSULE BY MOUTH ONCE DAILY FOR MOOD; TAKE DAILY WITH 20 MG CAPSULES 01/28 completed Not Available Not Available Not Available hydrocodone 5 mg-acetamin ophen 325 mg tablet TAKE 1 TAB PO Q 4-6 HRS PRN FOR SEVERE POST SURGICAL PAIN active Not Available Not Available No t Available meloxicam 7.5 mg tablet TAKE 1 TAB PO QD WITH FOOD REGARDLES S OF PAIL LEVEL FOR 1 WEEK, THEN TAKE ONLY PRN FOR PAIN RELIEF THEREAFTE R active Not Available Not Available No t Available oxycodone-a cetaminophe n 5 mg-325 mg tablet TAKE 1 TABLET BY MOUTH EVERY 4 TO 6 HOURS NEEDED FOR PAIN 01/28 completed Not Available Not Available Not Available diclofenac sodium 75 mg tablet,marcos yed release TAKE 1 TABLET BY MOUTH TWICE DAILY 01/28 completed Not Available Not Available Not Available gabapentin 100 mg capsule TAKE 1 CAPSULE PO QHS FOR 1 WEEK active Not Available Not Available No t Available fluoxetine 20 mg capsule TAKE 1 CAPSULE BY MOUTH ONCE DAILY FOR 2 WEEKS; THEN INCREASE TO 2 CAPSULES DAILY 01/28 completed Not Available Not Available Not Available Vitals Date Recorded Body height Body mass index (BMI) Body weight Provider Name and Address Organization Details Last Updated DateTime 01/28/2021 182.88 cm 20.3 kg/m2 40985.86 g Zabrina [facility] 01/28/2021 13:55:46 Date Recorded Body height Body mass index (BMI) Body weight Provider Name and Address Organization Details Last Updated DateTime 02/21/2021 182.88 cm 20.3 kg/m2 80835.86 g Flora Flores [facility] 02/21/2021 11:30:00 Social History Question Answer Notes LastModified by [employer] Details LastModified Time Tobacco Smoking Status Never Smoker [facility] 01/28/2021 13:56:47 Which Of Your Hands Is Dominant? Right [email or web address] Information not available 01/28/2021 Sex: Unknown Functional Status Question Answer Note LastModified by [employer] Details LastModified Time Do you use any illicit or recreational drugs? No [email or web address] Information not available 01/28/2021 Are you currently employed? Yes [email or web address] Information not available 01/28/2021 What is your occupation? [employer] [email or web address] Information not available 01/28/2021 Mental Status None recorded. Family History Nothing Reported. Medical History Condition Response Allergies/Hayfever N Gout N Other N Anxiety/Depression N Thyroid Disease N Heart Conditions N Kidney Stones N Hernia N Migraines N COPD N Glaucoma N Pneumonia N Skin Problems N Immune System Disorder N Anesthesia Complications N Heart Attack ([place]) N Mental Illness N Neurological Problems N Diabetes N Rheumatic Fever N Bleeding Disorder N Arthritis N Seizures/Epilepsy N Blood Clot N Tuberculosis N Genetic Disorder N AIDS/HIV N Cancer N Stroke N Asthma N Blood Thinners N Alcohol Overuse/Alcohol Abuse N Sleep Apnea N High Cholesterol N Liver Disease N Included as Review of Systems Y Hypertension N Osteoporosis N Kidney Disease N Past Encounters Encounter ID Performer Location Encounter Start Date Encounter Closed Date Diagnosis/Indication Diagnosis SNOMED-CT Code Diagnosis ICD10 Code Diagnosis Note [id number] ASHLIE BROWN MD [facility] [address] [place] [address] 01/28/2021 13:50:01 01/28/2021 14:37:45 Complication of internal fixation device 5297588 T84.210A Complicati on related to implant, hardware prominence and tenderness , with MP capsular contractur e. Recommende d hardware removal MP capsulecto my and therapy postoperat sam day 1. Schedule therapy at [facility] hand therapy so that he can be seen at the [place] office as he is from [place]. [id number] ASHLIE BROWN MD SURGERY SCHEDULE [address] [place] [address] 02/11/2021 06:40:41 02/11/2021 06:41:07 [id number] KENNETH CARBALLO PA-C [facility] [address] [place] [address] 02/21/2021 11:20:34 02/21/2021 12:23:10 Complication of internal fixation device 3612959 T84.210D doing well status post removal of hardware and tenolysis of the extensor tendons to the right small finger. Health Concerns Section Related Observation LastModified by Organization Detai ls LastModified Time None Recorded Concern Status LastModified by Organization Details LastModified Time None Recorded Advance Directives Directive None Recorded Payers Insurance Date Sequence Insurance Name Policy Number Policy Allen Covered Member ID Allen Member ID Guarantor Name 03/18/2021 1 [employer] (POS) [id number] Jairon Malhotra [id number] Jairon Malhotra Notes Date Note Type Note Provider Name and Address Organization Details Recorded Time text/html Consult requested by: Primary Care Physician: Hand dominance: Right Location: Right small finger Pain level: /10 Date of injury: Duration: Recent Surgery: No Procedure: Date of surgery: Duration: In office procedure? No Previous upper extremity surgery? 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 Yes Is this injury associated with a Workers Compensation claim? 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 He notes that in September he was having a bad day and he punched a metal building. he notes that he has had surgery on that area. He states that the finger doesn't go all the way to his palm when making a fist. he also has a pins and needles feeling in the finger as well. ASHLIE BROWN MD [facility] [place], [address], [facility] 01/28/2021 14:18:51 text/html The patient is here for a routine scheduled postoperative follow-up visit. Patient reports pain can be as much as 5/10, especially when doing therapy. He states during therapy after he has warmed his hand up he is able to make a full fist. Hand dominance: Right Location: Right small finger Pain level: 0 /10, 5/10 at worst Date of injury: Duration: 5 month(s)of punching a wall. Recent Surgery: No Procedure:REMOVAL HARDWARE RIGHT SMALL FINGER; METACARPOPHALANGEAL CAPSULECTOMY Date of surgery:02-11-2021 Duration: 1 week(s) In office procedure? No Previous upper extremity surgery? 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 Yes Is this injury associated with a Workers Compensation claim? 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
== END 2025-02-12 23:59 | disposition home or self-care (01) ==
PROVIDERS: PCP Nurse Practitioner Family; Visit Provider Physician Assistant Surgical
DX: S62.397D Other fracture of fifth metacarpal bone, left hand, subsequent encounter for fracture with routine healing (principal)
CPT/HCPCS: 73130

== ENCOUNTER 2025-02-22 16:34 | Outpatient (CLI) | payer BC, OTHER, SELFPAY ==
--- NOTE | 2025-02-22 16:42 | XR_ITS ---
PROCEDURE INFORMATION: Exam: XR Right Hand Exam date and time: 02/22/2025 4:33 PM Age: 34 years old Clinical indication: Other: Pain in right hand after shutting hand in car door TECHNIQUE: Imaging protocol: Radiologic exam of the right hand. Views: 3 or more views. COMPARISON: CR XR HAND RT MIN 3V 01/17/2021 1:50 PM FINDINGS: Bones/joints: Normal. Soft tissues: Normal. IMPRESSION: No acute findings.
== END 2025-02-22 23:59 | disposition home or self-care (01) ==
LOC: RAD 16:37
PROVIDERS: PCP Nurse Practitioner Family; Visit Provider Nurse Practitioner
DX: M79.641 Pain in right hand (principal); W23.0XXA Caught, crushed, jammed, or pinched between moving objects, initial encounter
CPT/HCPCS: 73130

== ENCOUNTER 2025-03-05 09:14 | Outpatient (CLI) | payer OTHER, SELFPAY ==
--- OUTSIDE RECORDS SUMMARY | 2025-03-05 09:17 | XMS_ITS | Data Portability ---
Author Organization RU[facility] - KEN Can [facility] Address [address] [place] [address] Assessment No assessment recorded. Plan of Treatment [...] By Organization Details Last Modified Time 02/21/2021 [id number] Continue therapy . His work requires a [...] 02/21/2021 XR, hand, 2 view [place] [facility] [address] [place] [address] Patililo t Name: JAIRON ARELLANO Patien t [...] long MD on 021 11:38 AM DBA_[email or web address]_ [facility] [place] [address] , [place], [address], 02/12/2022 03:45:39 Result Notes Documentation Provider Name and Address Organization Details Recorded Time Xr, Hand, 2 View : [facility] [address] [place] [address] Patient Name: JAIRON MALHOTRA Patient : 1990 [...] By: Kedar Luis MD ETH CARBALLO PA-C [address] [place] [address], [phone], [facility] 02/21/2021 12:39:26 Procedures Surgical History Date Name Laterality Status Provider Name and Address Organization Details Recorded Time Orthopedic Surgery completed [facility] 01/28/2021 13:57:20 Imaging Results None [...] Updated DateTime 01/28/2021 182.88 cm 20.3 kg/m2 44400.86 g Zabrina [facility] 01/28/2021 13:55:46 Date Recorded Body height Body mass index (BMI) Body weight Provider Name and Address Organization Details Last Updated DateTime 02/21/2021 182.88 cm 20.3 kg/m2 67616.86 g Flora Flores [facility] 02/21/2021 11:30:00 Social History Question Answer Notes LastModified by [employer] Details LastModified Time Tobacco Smoking Status Never Smoker [facility] 01/28/2021 13:56:47 Which Of Your Hands Is Dominant? Right [email or web address] Information not available 01/28/2021 Sex: Unknown Functional Status Question Answer Note LastModified by [employer] Details LastModified Time Do you use any illicit or recreational drugs? No [email or web address] Information not available 01/28/2021 Are you currently employed? Yes [email or web address] Information not available 01/28/2021 What is your occupation? [employer] [email or web address] Information not available 01/28/2021 Mental Status None recorded. Family History Nothing Reported. Medical History Condition Response Gout N Other N Kidney Stones N COPD N Pneumonia N Arthritis N Blood Clot N Cancer N Stroke N Kidney Disease N Heart Conditions N Migraines N Skin Problems N Rheumatic Fever N Bleeding Disorder N Tuberculosis N Genetic Disorder N AIDS/HIV N Asthma N Included as Review of Systems Y Anxiety/Depression N Thyroid Disease N Hernia N Glaucoma N Anesthesia Complications N Blood Thinners N Alcohol Overuse/Alcohol Abuse N High Cholesterol N Liver Disease N Allergies/Hayfever N Immune System Disorder N Heart Attack ([place]) N Mental Illness N Neurological Problems N Diabetes N Seizures/Epilepsy N Sleep Apnea N Hypertension N Osteoporosis N Past Encounters Encounter ID Performer Location Encounter Start Date Encounter Closed Date Diagnosis/Indication Diagnosis SNOMED-CT Code Diagnosis ICD10 Code Diagnosis Note [id number] ASHLIE BROWN MD [facility] [address] [place] [address] 01/28/2021 13:50:01 01/28/2021 14:37:45 Complication of internal fixation device [id number] T84.210A Complicati on related to implant, hardware prominence and tenderness , with MP capsular contractur e. Recommende d hardware removal MP capsulecto my and therapy postoperat sam day 1. Schedule therapy at [facility] hand therapy so that he can be seen at the [place] office as he is from [place]. [id number] ASHLIE BROWN MD SURGERY SCHEDULE [address] [place] [address] 02/11/2021 06:40:41 02/11/2021 06:41:07 [id number] KENNETH CARBALLO PA-C [facility] [address] [place] [address] 02/21/2021 11:20:34 02/21/2021 12:23:10 Complication of internal fixation device [id number] T84.210D doing well status post removal of [...] ID Guarantor Name 03/18/2021 1 [employer] (POS) [id number] Jairon Malhotra [id number] Jairon Malhotra
--- NOTE | 2025-03-05 09:23 | XR_ITS ---
FINAL REPORT CLINICAL HISTORY: left hand fx boxers COMPARISON: 02/12/2025 FINDINGS: AP, oblique, and lateral views of the left hand were obtained. Since the prior exam of 02/12/2025 there has been some interval healing of the fracture of the head of the fifth metacarpal. No other fracture is identified. The joint spaces are preserved. There is improvement in the soft tissue swelling noted on the prior exam. IMPRESSION: There has been some interval healing of the fracture of the head of the fifth metacarpal since the prior exam of 02/12/2025. No acute bony abnormality is present. Reviewed, Interpreted and Dictated by Bibi Kelly MD Transcribed by Albertina Curtis Authenticated and [facility]
== END 2025-03-05 23:59 | disposition home or self-care (01) ==
LOC: RAD 09:15
PROVIDERS: PCP Nurse Practitioner Family; Visit Provider Physician Assistant
DX: S62.397D Other fracture of fifth metacarpal bone, left hand, subsequent encounter for fracture with routine healing (principal); X58.XXXD Exposure to other specified factors, subsequent encounter
CPT/HCPCS: 73130

== ENCOUNTER 2025-04-02 08:54 | Outpatient (CLI) | payer OTHER, SELFPAY ==
--- NOTE | 2025-04-02 08:56 | XR_ITS ---
FINAL REPORT CLINICAL HISTORY: fracture COMPARISON: 03/05/2025 FINDINGS: LEFT HAND Three views demonstrate no acute fracture or dislocation. There has been no significant change in the appearance of the fracture of the fifth metacarpal head. The visualized joint spaces are normally aligned. The soft tissues are unremarkable. IMPRESSION: Stable appearance of the fifth metacarpal head fracture. Reviewed, Interpreted and Dictated by Bibi Klely MD Transcribed by Kathrin Fish Authenticated and [facility]
== END 2025-04-02 23:59 ==
LOC: RAD 08:55
PROVIDERS: PCP Nurse Practitioner Family; Visit Provider Physician Assistant
DX: S62.397A Other fracture of fifth metacarpal bone, left hand, initial encounter for closed fracture (principal); X58.XXXA Exposure to other specified factors, initial encounter
CPT/HCPCS: 73130

== ENCOUNTER 2025-05-01 08:52 | Outpatient (CLI) | payer OTHER, SELFPAY ==
--- OUTSIDE RECORDS SUMMARY | 2023-12-08 06:45 | XMS_ITS ---
Author Organization [facility] Address [address] [facility] [address] [place] [id number] Care Team Providers Care Skid Adzer Name Role Phone Ayanna Holly Unavailable [phone] Allergies No Known Allergies Results Component Value Reference Range Notes Urinalysis - Inhouse Reviewed date:12/08/2023 01:17:02 PM Interpretation: Performing Lab: Notes/Report: Color/Clarity yellow/clear Leuk Neg Nitrite Neg Urobili 3.2 Protein Neg pH 5.5 Blood Neg Sp. Gr. 1.025 Ketone Neg Bili Neg Gluc Neg CBC Fingerstick (in house) Reviewed date:12/08/2023 01:17:11 PM Interpretation: Performing Lab: Notes/Report: wbc 6.8 3.5 - 10 lym 19.8 15 - 50 mid 5.5 2 - 15 gran 74.7 35 - 80 rbc 4.92 3.5 - 5.5 hgb 14.7 11.5 - 16.5 hct 44.2 35 - 55 mcv 89.8 75 - 100 mch 29.9 25 - 35 mchc 33.3 31 - 38 plat 355 100 - 400 REASON FOR VISIT lower abdomen and back pain Vital Signs Blood pressure systolic 100 mm Hg 12/08/19 24 Blood pressure diastolic 64 mm Hg 024 Heart Rate 70 /min 12/08/2023 Height 72 in 12/08/2023 Weight 162.6 lbs 12/08/2023 BMI 22.05 kg/m2 12/08/2023 Encounters Encounter Location Date Provider Diagnosis [facility] [address] [place] [id number] 12/08/2023 Ayanna Holly Right flank pain R10 .9 and Right lower quadrant abdominal pain R10.31 Assessments Encounter Date Diagnosis (ICD Code) Assessment Notes Treatment Notes Treatment Clinical Notes Section Notes 12/08/2023 Right flank pain (ICD-10 - R10.9) Pain has resolved. Patient likely had a kidney stone that he has since passed. Will continue to monitor. 12/08/2023 Right lower quadrant abdominal pain (ICD-10 - R10.31) Resolved. Plan Of Treatment Treatment Notes Assessment Notes Right flank pain Pain has resolved. P atient likely had a kidney stone that he has since passed. Will continue to monitor. Right lower quadrant abdominal pain Reso lved. Next Appt Details Follow Up: prn, Reason: Progress Notes * JASVIR MALHOTRAOB: 0 (34 yo M)Acc No.[id number]:12/08/2023 Progress Notes Patient: JULIANNE BARNARD Provider: ERICKA Estrada :1990 A ge:33 Y S ex:Male Date:12/08/2023 Address:[address] [place] [address] [place] [id number] Subjective: * Chief Complaints: * 1 . Lower abdomen and back pain. * HPI: G astroenterology: Pt states he started Wednesday with pain in low back that radiated into the right lower abdomen. Pt states the pain was really bad yesterday. He was unable to get comfortable. It felt like something was stabbing him off and on all day. Last night around 2am, the pain stopped and he has no pain today. Pt denies any burning with urination. 33 year old male presents with c/o Abdominal Pain l ower abdomen. Denies : Nausea. D enies : Vomiting. D enies : Diarrhea. D enies : Fever. * ROS: D ERMATOLOGY: no R bautista. n o H daniel. G ASTROENTEROLOGY: no N ausea. n o V omiting. n o D iarrhea.? U ROLOGY: no D ifficulty urinating. n o B lood in urine. * Medical History: M edical History Verified. * Family History: F ather: alive. M other: , diagnosed with Cancer. P aternal Grand Father: . P aternal Grand Mother: . M aternal Grand Father: . M aternal Grand Mother: . Paternal and Maternal Grandfather-Black lung\nPaternal Grandmother-Brain Tumor. * Medications: D iscontinued Cozbruyuk-Jgxbnxvv-NJ 30-2-10 MG/5ML Syrup 5-10 ml orally qid, prn , Discontinued Cefdinir 300 MG Capsule 1 cap(s) orally bid , Discontinued Wmojlrnlp-Scesvmid-DL 30-2-10 MG/5ML Syrup 5-10 ml orally qid, prn , Discontinued Xrwjiwwkl-Disllczy-KE 30-2-10 MG/5ML Syrup 5-10 mL orally 4 times per day, prn , Medication List reviewed and reconciled with the patient * Allergies: N .K.D.A. Objective: * Vitals: W t:162.6, Temp:98.5, BP:100/64, HR:70, Nurse:NATALI, Ht: 72, BMI:22.05. * Examination: G astroenterology: General Appearance: p leasant, NAD. O ral cavity: n ormal. S clera: a nicteric. H eart sounds: r egular, normal S1 S2, no murmurs. L ungs: c lear, no rales or wheezes. A bdomen: B S present, soft, nontender, no guarding or rigidity, no masses felt, no CVA tenderness. H ernias: n one. Assessment: * Assessment: 1. R ight flank pain - R10.9 (Primary) 2 . R ight lower quadrant abdominal pain - R10.31 Plan: * Treatment: Value Reference Range w bc 6.8 3.5 - 10 * l ym 19.8 15 - 50 * m id 5.5 2 - 15 * g ran 74.7 35 - 80 * r bc 4.92 3.5 - 5.5 * h gb 14.7 11.5 - 16.5 * h ct 44.2 35 - 55 * m cv 89.8 75 - 100 * m ch 29.9 25 - 35 * m chc 33.3 31 - 38 * p lat 355 100 - 400 * Debra Duarte 12/08/2023 11:3 2:43 AM > , Provider reviewed results while patient in office.Ayanna Holly 12/08/2023 1:17:06 PM > Notes: Pain has resolved. Patient likely had a kidney stone that he has since passed. Will continueto monitor.??2.?Right lower quadrant abdominal pain?LAB: Urinalysis - Inhouse (Collection Date & Time - 12/08/2023)* Value Reference Range C olor/Clarity yellow/clear * L euk Neg * N itrite Neg * U robili 3.2 * P rotein Neg * p H 5.5 * B lood Neg * S p. Gr. 1.025 * K etone Neg * B reina Neg * G gay Neg * Debra Duarte L 12/08/2023 11:3 1:52 AM > , Provider reviewed results while patient in office.Ayanna Holly 12/08/2023 1:16:55 PM > Notes: Resolved.?? * Procedure Codes: 3 6416 CAPILLARY BLOOD DRAW, 35828 CBC WITH AUTO DIFF, 70908 Urinalysis, no micro * Follow Up: p rn * Images: Billing Information: * Visit Code: 37588 Office Visit, Est Pt., Level 3. * Procedure Codes: 13942 CAPILLARY BLOOD DRAW. 66728 CBC WITH AUTO DIFF. 80767 Urinalysis, no micro. * Electronic signature of ERICKA Ying on 05/01/2025 at 09:10 AM EDT Sign off status: Pending * Provider: ERICKA Estrada Date: 0 12/08/2023 Generated for Brenti ng/Fajoanneg/eTransmitting on: 0 05/01/2025 09:10 AM EDT History and Physical Notes * HPI (History of Present Illness) Category Sub-Category Detail Notes Category Not es Gastroenterology Fever Vomiting Abdominal Pain lower abdomen Diarrhea Nausea Examination Category Sub-Category Detail Notes Category Not es Gastroenterology Oral cavity: normal Sclera: anicteric Heart sounds: regular, normal S1 S 2, no murmurs Lungs: clear, no rales or w heezes Abdomen: BS present, soft, no ntender, no guarding or rigidity, no masses felt, no CVA tenderness Hernias: none General Appearance: pleasant, NAD
--- NOTE | 2025-05-01 08:55 | XR_ITS ---
FINAL REPORT CLINICAL HISTORY: f/u left hand fx COMPARISON: 04/02/2025 FINDINGS: AP, oblique, and lateral views of the left hand were obtained. There is no change in the appearance of the fracture at the head of the fifth metacarpal. No new osseous abnormality identified. The joint spaces are preserved. The soft tissues are normal. IMPRESSION: No change in appearance fifth metacarpal fracture. Reviewed, Interpreted and Dictated by Bibi Kelly MD Transcribed by Katie Clancy Authenticated and [facility]
--- OUTSIDE RECORDS SUMMARY | 2025-05-01 09:11 | XMS_ITS | Patient Health Record ---
[facility] Address [address] [place] [id number] Care Team Providers Care Heel Packer Name Role Phone Ayanna Holly Unavailable [phone] Allergies No Known Allergies Reason For Referral No Information Immunizations Vaccine Route Administration Date Status Comme nts COVID 19 Moderna Unknown 09/04/2020 Administered COVID 19 Moderna Unknown 10/02/2020 Administered Tetanus Tdap-Adacel (over 7yrs) Unknown 12/28/2019 Admi nistered Plan Of Treatment No Information Insurance Providers Payer Name Payer Address Payer Phone Subscriber Number Group Number Insured Name Patient Relationship to Insured Coverage Start Date Coverage End Date MARINA FUNEZ [employer] [address] [place] [address] [id number] JULIANNE ACE Self - patient is the insured Medical (General) History Surgical History Surgery Date(Month/Year)
== END 2025-05-01 23:59 | disposition home or self-care (01) ==
LOC: RAD 08:53
PROVIDERS: PCP Nurse Practitioner Family; Visit Provider Physician Assistant Surgical
DX: S62.337A Displaced fracture of neck of fifth metacarpal bone, left hand, initial encounter for closed fracture (principal)
CPT/HCPCS: 73130